=== PATIENT | female | born 1995 | race Caucasian/White ===

== ENCOUNTER 2020-09-30 22:01 | Inpatient (IN) | payer OTHER, SELFPAY ==
[~2020-09-30] VITALS: Ht 167.6 cm; Wt 93.4 kg
[2020-09-30] MEDS ORDERED: PNV91TAB8 PO (22:31)
[2020-09-30] MEDS ORDERED: FERR-212 PO (22:31)
[2020-09-30] MEDS ORDERED: METHYLERGONOVINE 0.2 MG/ML AMP IM PRN (22:35)
[2020-09-30] MEDS ORDERED: OXYTOCIN 10 UNITS/ML VIAL IM SCH (22:35)
[2020-09-30] MEDS ORDERED: CARBOPROST 250 MCG/ML AMP IM PRN (22:35)
[2020-09-30] MEDS ORDERED: MORPHINE SULFATE 5 MG/ML VIAL IVP PRN (22:40)
[2020-09-30] MEDS ORDERED: OXYTOCIN 20 UNITS in LACTATED RINGERS 1,000 ML IV SCH (22:40)
[2020-09-30] MEDS ORDERED: ONDANSETRON 4 MG/2 ML VIAL IVP PRN (22:40)
[2020-09-30] MEDS ORDERED: MISOPROSTOL 25 MCG TAB VG SCH (22:40)
[2020-09-30 23:12] LABS: APPEARANCE,URINE SL CLOUDY (CLEAR); BILIRUBIN,URINE NEGATIVE (NEGATIVE); BLOOD, URINE NEGATIVE (NEGATIVE); COLOR,URINE YELLOW (YELLOW); LEUKOCYTE ESTERASE ,URINE 1+ (NEGATIVE); NITRITE, URINE NEGATIVE (NEGATIVE); UGLUCOSE NEGATIVE (NEGATIVE)
[2020-09-30 23:14] LABS: BASOPHILS % (AUTO) 0.4 % (0.0-2.0); EOSINOPHILS % (AUTO) 0.5 % (0.0-4.0); HEMATOCRIT 35.5 % (36-48); HEMOGLOBIN 12.1 g/dL (12.0-16.0); LYMPHOCYTES # (AUTO) 2.1 K/uL (2.5-16.5); LYMPHOCYTES % (AUTO) 29.1 % (20.5-51.1); MEAN CORPUSCULAR HEMOGLOBIN 30 pg (27-31); MEAN CORPUSCULAR HGB CONC 34 g/dL (33-37); MEAN CORPUSCULAR VOLUME 87.3 fL (80-94); MONOCYTES # (AUTO) 0.4 K/uL (0.8-1.0); MONOCYTES % (AUTO) 5.4 % (1.7-9.3); NEUTROPHILS # (AUTO) 4.7 K/uL (1.8-7.7); NEUTROPHILS % (AUTO) 64.6 % (42.2-75.2); PLATELET COUNT (AUTO) 162 K/uL (140-450); RED BLOOD CELL COUNT(AUTO) 4.06 MIL/uL (4.20-5.40); RED CELL DISTRIBUTION WIDTH 14.2 % (11.6-13.7); WHITE BLOOD COUNT (AUTO) 7.3 K/uL (4.8-10.8)
[2020-09-30] MEDS: LACTATED RINGERS 1,000 ML IV SCH (23:16)
[2020-09-30 23:27] LABS: ALBUMIN 2.8 g/dL (3.4-5.0); ANION GAP 13.8 (8-16); CARBON DIOXIDE 24.8 mmol/L (21-32); CREATININE 0.7 mg/dL (0.6-1.3); POTASSIUM 3.6 mmol/L (3.5-5.1); TOTAL BILIRUBIN 0.4 mg/dL (0.0-1.0)
[2020-09-30 23:32] LABS: RBC,URINE 0-5 /HPF (0-5)
[2020-09-30 23:37] VITALS: BP 113/71
[2020-10-01] MEDS ORDERED: MORPHINE SULFATE 10 MG/ML VIAL ONE (04:09)
[2020-10-01 04:16] VITALS: BP 111/72
[2020-10-01] MEDS ORDERED: ROPIVACAINE 0.2%/NS PREMIX 200 ML EPI ONE (04:28)
[2020-10-01] MEDS: LACTATED RINGERS 1,000 ML IV SCH ×2 (04:35→05:30)
[2020-10-01] MEDS ORDERED: OXYTOCIN 20 UNITS/LR PREMIX 1,000 ML IV ONE (04:42)
[2020-10-01] MEDS ORDERED: LIDOCAINE 1% 500 MG/50 ML VIAL ONE (08:56)
--- NOTE | 2020-10-01 08:57 | NUR ---
PATIENT HAS BEEN SCREENED AND CATEGORIZED LOW NUTRITION RISK. PATIENT WILL BE SEEN WITHIN 7 DAYS OF ADMISSION. 10/07/[address]
[2020-10-01] MEDS ORDERED: DOCUSATE SODIUM 100 MG GELCAP PO PRN (09:00)
[2020-10-01] MEDS ORDERED: SIMETHICONE 80 MG TAB.CHEW PO PRN (09:00)
[2020-10-01] MEDS ORDERED: METHYLERGONOVINE 0.2 MG TAB PO PRN (09:00)
[2020-10-01] MEDS ORDERED: BENZOCAINE/MENTHOL 20%-0.5% 60 GM CAN TP PRN (09:00)
[2020-10-01] MEDS ORDERED: METHYLERGONOVINE 0.2 MG/ML AMP IM PRN (09:00)
[2020-10-01] MEDS ORDERED: MEASLES, MUMPS, AND RUBELLA 1 VIAL SQVAC ONE (09:00)
[2020-10-01] MEDS ORDERED: bisacodyL 5 MG TABEC PO PRN (09:00)
[2020-10-01] MEDS ORDERED: IBUPROFEN 600 MG TAB PO PRN (09:00)
[2020-10-01] MEDS ORDERED: OXYTOCIN 10 UNITS/ML VIAL IM PRN (09:00)
[2020-10-01] MEDS ORDERED: LIDOCAINE MPF 1% 10 MG/ML VIAL INJ SCH (09:20)
[2020-10-01] MEDS: IBUPROFEN 800 MG TAB PO PRN ×2 (15:06→23:26)
[2020-10-02 07:51] LABS: HEMATOCRIT 36.3 % (36-48); HEMOGLOBIN 12.4 g/dL (12.0-16.0)
== END 2020-10-02 13:55 | disposition home or self-care (01) | DRG 560 ==
LOC: MLD 22:01 → MFCC 10-01 11:00
PROVIDERS: ADMIT Obstetrics & Gynecology; ATTEND Obstetrics & Gynecology
PROC: 10E0XZZ Delivery of Products of Conception, External Approach (ICD-10-PCS; principal; 2020-09-30)
PROC: 3E0134Z Introduction of Serum, Toxoid and Vaccine into Subcutaneous Tissue, Percutaneous Approach (ICD-10-PCS; 2020-10-01)
PROC: 3E0234Z Introduction of Serum, Toxoid and Vaccine into Muscle, Percutaneous Approach (ICD-10-PCS; 2020-10-01)
DX: O99.284 Endocrine, nutritional and metabolic diseases complicating childbirth (principal); E88.09 Other disorders of plasma-protein metabolism, not elsewhere classified; Z20.822 Contact with and (suspected) exposure to COVID-19; Z23 Encounter for immunization; Z3A.38 38 weeks gestation of pregnancy; Z37.0 Single live birth
CPT/HCPCS: 36415; 51702; 59200; 59409; 76815; 80053; 81001; 85018; 85025; 86592; 86886; 86900; 86901; 87086; J2001; J2270; J2405; J2590; J2795; J7120